=== PATIENT | male | born 1975 | race Hispanic/Latino ===

== ENCOUNTER 2018-05-07 19:24 | Emergency (ER) | payer SELFPAY ==
[2018-05-07] MEDS ORDERED: Ondansetron HCl/PF 4 MG/2 ML Vial ONE (19:56)
[2018-05-07] MEDS ORDERED: Lorazepam 2 MG/ML VIAL ONE (19:56)
[2018-05-07 20:02] LABS: #Eosinphils 0.1 thou/uL (0.0-0.7); #Lymphocytes 1.3 thou/uL (1.20-3.40); #Monocytes 0.5 thou/uL (0.11-0.59); #Neutrophils 5.1 thou/uL (1.40-6.50); %Basophils 0.2 % (0.0-1.0); %Eosinophils 1.2 % (0.0-10.0); %Lymphocytes 18.8 % (21.0-51.0); %Monocytes 7.5 % (0.0-10.0); %Neutrophils 72.3 % (42.0-75.0); Hemoglobin 14.9 g/dL (14.0-18.0); Mean Corpuscular HGB CONC 35.6 g/dL (32.0-36.0); Mean Corpuscular Hemoglobin 30.4 pg (27.0-31.0); Mean Corpuscular Volume 85.4 fL (78.0-98.0); Mean Platelet Volume 6.9 fL (7.4-10.4); Platelet Count 143 thou/uL (130-400); RBC Distribution Width 11.8 % (11.5-14.5); Red Blood Cell (RBC) Count 4.88 mill/uL (4.70-6.10); White Blood Cell (WBC) Count 7.1 thou/uL (4.8-10.8)
[2018-05-07 20:27] LABS: ALT (SGPT) 99 U/L (8-55); AST (SGOT) 104 U/L (5-34); Albumin 4.1 g/dL (3.5-5.0); Alcohol 195 mg/dL (Less than 10); Alkaline Phosphatase 84 U/L (40-150); Anion Gap 16 mmol/L (10-20); BUN (Urea Nitrogen) 8 mg/dL (8.9-20.6); Bilirubin, Total 0.8 mg/dL (0.2-1.2); Calc. Creatinine Clearance 0 mL/min (70-130); Calcium 8.7 mg/dL (7.8-10.44); Carbon Dioxide 24 mmol/L (22-29); Chloride 90 mmol/L (98-107); Estimated GFR-MDRD Greater than 90; Globulin 2.9 g/dL (2.4-3.5); Glucose 112 mg/dL (70-105); Lipase 54 U/L (8-78); Potassium 3.6 mmol/L (3.5-5.1); Sodium 126 mmol/L (136-145)
[2018-05-07 20:28] LABS: CKMB 2.4 ng/mL (0-6.6); Troponin I Less than 0.010 ng/mL (< 0.028)
[2018-05-07 20:30] LABS: Bilirubin Negative (Negative); Blood, Urine Negative (Negative); Clarity CLEAR (Clear); Glucose, Urine (Dipstick) 100 mg/dL (Negative); Leukocyte Negative (Negative); Nitrite Negative (Negative); Protein, Urine (Dipstick) Trace mg/dL (Neg-Trace); Specific Gravity, Urine 1.023 (1.002-1.036); Urobilinogen 0.2 mg/dL (0.2-1.0); pH, Urine 5.5 (5.0-9.0)
--- NOTE | 2018-05-11 11:54 | EKG ---
Test Reason : Blood Pressure : / mmHG Vent. Rate : 122 BPM Atrial Rate : 122 BPM P-R Int : 134 ms QRS Dur : 090 ms QT Int : 308 ms P-R-T Axes : 040 089 035 degrees QTc Int : 438 ms Sinus tachycardia Possible Left atrial enlargement Borderline ECG Confirmed by ENRIQUETA CAMARENA ([id number]), rewrite editor SOCO PIZARRO ([id number]) on 05/11/2018 11:54:11 AM Referred By: Confirmed By:ENRIQUETA CAMARENA
== END 2018-05-07 23:00 | disposition home or self-care (01) ==
LOC: ERS 19:24
DX: R10.13 Epigastric pain (principal); R11.10 Vomiting, unspecified; E05.90 Thyrotoxicosis, unspecified without thyrotoxic crisis or storm; K21.9 Gastro-esophageal reflux disease without esophagitis; I10 Essential (primary) hypertension; G43.909 Migraine, unspecified, not intractable, without status migrainosus; F41.9 Anxiety disorder, unspecified; F32.9 Major depressive disorder, single episode, unspecified; F17.210 Nicotine dependence, cigarettes, uncomplicated; Z79.899 Other long term (current) drug therapy
CPT/HCPCS: 80053; 80307; 81003; 82553; 83690; 84484; 85025; 93005; 96361; 96374; 96375; J2060; J2405

== ENCOUNTER 2018-06-09 14:29 | Inpatient (IN) | payer SELFPAY ==
[2018-06-09] MEDS ORDERED: Ondansetron HCl/PF 4 MG/2 ML Vial ONE ×2 (14:39)
[2018-06-09 14:51] LABS: #Basophils 0.1 thou/uL (0.0-0.2); #Eosinphils 0.1 thou/uL (0.0-0.7); #Lymphocytes 2.4 thou/uL (1.20-3.40); #Monocytes 0.6 thou/uL (0.11-0.59); #Neutrophils 4.3 thou/uL (1.40-6.50); %Basophils 0.9 % (0.0-1.0); %Eosinophils 1.4 % (0.0-10.0); %Lymphocytes 32.1 % (21.0-51.0); %Monocytes 8.2 % (0.0-10.0); %Neutrophils 57.4 % (42.0-75.0); Hemoglobin 16.1 g/dL (14.0-18.0); Mean Corpuscular HGB CONC 33.2 g/dL (32.0-36.0); Mean Corpuscular Hemoglobin 30.7 pg (27.0-31.0); Mean Corpuscular Volume 92.4 fL (78.0-98.0); Mean Platelet Volume 7.2 fL (7.4-10.4); Platelet Count 194 thou/uL (130-400); RBC Distribution Width 14.5 % (11.5-14.5); Red Blood Cell (RBC) Count 5.27 mill/uL (4.70-6.10); White Blood Cell (WBC) Count 7.4 thou/uL (4.8-10.8)
[2018-06-09] MEDS ORDERED: Pantoprazole 40 MG VIAL ONE (14:59)
[2018-06-09 15:03] LABS: ALT (SGPT) 110 U/L (8-55); AST (SGOT) 141 U/L (5-34); Albumin 4.5 g/dL (3.5-5.0); Alkaline Phosphatase 88 U/L (40-150); Bilirubin, Direct 0.4 mg/dL (0.1-0.3); Bilirubin, Total 0.9 mg/dL (0.2-1.2); CK (CPK) 574 U/L (30-200); Protein, Total 7.8 g/dL (6.0-8.3)
[2018-06-09] MEDS ORDERED: Morphine 4 MG/ML VIAL ONE ×2 (15:06→16:20)
[2018-06-09 15:10] LABS: ALT (SGPT) 109 U/L (8-55); AST (SGOT) 142 U/L (5-34); Acetaminophen Less than 6.0 mcg/mL (10.0-30.0); Albumin 4.4 g/dL (3.5-5.0); Alcohol 233 mg/dL (Less than 10); Alkaline Phosphatase 87 U/L (40-150); Anion Gap 21 mmol/L (10-20); BUN (Urea Nitrogen) 5 mg/dL (8.9-20.6); Bilirubin, Total 0.9 mg/dL (0.2-1.2); Calc. Creatinine Clearance 0 mL/min (70-130); Calcium 9.4 mg/dL (7.8-10.44); Carbon Dioxide 20 mmol/L (22-29); Chloride 96 mmol/L (98-107); Estimated GFR-MDRD Greater than 90; Globulin 3.6 g/dL (2.4-3.5); Glucose 125 mg/dL (70-105); Potassium 3.2 mmol/L (3.5-5.1); Salicylate Less than 8.0 mg/dL (15.0-30.0); Sodium 134 mmol/L (136-145)
[2018-06-09 15:14] LABS: CKMB 2.7 ng/mL (0-6.6); Troponin I Less than 0.010 ng/mL (< 0.028)
[2018-06-09 16:31] LABS: Amphetamine Not Detected (NotDetected); Barbiturates Screen Not Detected (NotDetected); Benzodiazepine Screen Not Detected (NotDetected); Cocaine Metabolite Screen Detected (NotDetected); Medtox Control Line Valid? VALID (VALID); Medtox Reader # READER 1; Methadone Not Detected (NotDetected); Methamphetamine Not Detected (NotDetected); Opiate Screen Detected (NotDetected); Oxycodone Screen Not Detected (NotDetected); Phencyclidine (PCP) Not Detected (NotDetected); THC/Cannabinoid Screen Not Detected (NotDetected); Tricyclic Screen Not Detected (NotDetected)
[2018-06-09] MEDS ORDERED: Ondansetron HCl/PF 4 MG/2 ML Vial IVP PRN (17:10)
[2018-06-09] MEDS ORDERED: Morphine 4 MG/ML VIAL SLOW IVP PRN ×2 (17:11→20:36)
[2018-06-09] MEDS ORDERED: Lorazepam 2 MG/ML VIAL SLOW IVP PRN (17:14)
[2018-06-09] MEDS ORDERED: Sodium Chloride 0.9% 1,000 ML IV SCH (17:15)
--- NOTE | 2018-06-09 17:18 | ULT ---
RIGHT UPPER QUADRANT GALLBLADDER ULTRASOUND: HISTORY: Abdominal pain. COMPARISON: Ultrasound from 2015. TECHNIQUE: Real-time kirk-scale and color evaluation of the abdomen was performed. FINDINGS: There is diffuse increased hepatic echotexture. The pancreas is not well seen. The liver measures 1 6.9 cm in length. Gallbladder wall thickness is normal. No pericholecystic fluid. The common bile duct is not dilated. The right kidney measures 13.7 x 6 x 4.9 cm with a septated cyst. IMPRESSION: 1. Diffuse hepatic steatosis. 2. Complex superior renal cyst. This has not increased in size from the 2015 examination. POS: [facility]
[2018-06-09 17:31] VITALS: BMI 27.6
[2018-06-09] MEDS: Sodium Chloride 0.9% 1,000 ML IV SCH (18:07)
[2018-06-09] MEDS: Famotidine/PF 20 mg/2ml Vial SLOW IVP SCH (20:47)
[2018-06-10] MEDS: Sodium Chloride 0.9% 1,000 ML IV SCH ×3 (00:40→12:57)
[2018-06-10] MEDS ORDERED: Diazepam 5 MG TAB PO SCH (04:00)
--- NOTE | 2018-06-10 04:45 | HP ---
CHIEF COMPLAINT: Abdominal pain. HISTORY OF PRESENT ILLNESS: This patient is a 42-year-old male with history of alcohol abuse and history of prior episodes of pancreatitis. The patient had quit drinking for about a year, but started again about a month ago. Around that time, the patient presented to the emergency department with some abdominal pain; however, his workup was negative. The patient reports that for the last several days he has had some nausea, vomiting, diarrhea, and epigastric abdominal pain. He says that yesterday he drank about 15 beers and his pain persisted, so he presented to the emergency department today. He denies any associated fevers or chills. The patient describes the pain is epigastric, constant and severe. REVIEW OF SYSTEMS: Notable for chills and sweats only today. He has been losing some weight and he has felt somewhat short of breath with this. PAST MEDICAL HISTORY: Notable for pancreatitis, alcohol abuse, hypertension, depression, GERD and migraines. PAST SURGICAL HISTORY: Knee and wrist surgeries. FAMILY HISTORY: Unremarkable. SOCIAL HISTORY: The patient quit smoking about a year ago. Says he quit drinking about a year ago and then had two relapses, one a month ago and again in yesterday. He denies drugs and says he quit 2 years ago, but he did indicate to the emergency department that he admitted to using cocaine and his drug screen was positive. The patient is . His sister would be his surrogate decision maker and he is a FULL CODE. ALLERGIES: None. MEDICATIONS: The patient reports he does take blood pressure medications, but he does not know what his medications are. PHYSICAL EXAMINATION: VITAL SIGNS: Temperature 97.6, pulse 95, respirations 18, blood pressure 108/73 , O2 sat 95% on room air. GENERAL APPEARANCE: Age appropriate male in no distress. He is slightly ill appearing. HEENT: PERRL. No OP lesions. NECK: Supple and symmetric. CARDIOVASCULAR: Regular rate and rhythm without murmurs, gallops or rubs. LUNGS: Clear bilaterally. ABDOMEN: Has exquisite tenderness to palpation in the epigastrium with guarding , no rebound. EXTREMITIES: Warm and dry. LABORATORY DATA: White count 7.4, hemoglobin 16.1, platelets 194. Sodium 134, potassium 3.2, chloride 96, CO2 of 20, BUN 5, creatinine 0.8, glucose 125, AST 141, ALT 110. CK 574, lipase 13,784. Urine drug screen positive for opiates and cocaine. Alcohol level is 233. Ultrasound of the abdomen is pending. IMPRESSION AND PLAN: 1. Acute pancreatitis, which is recurrent and secondary to alcohol abuse. The patient went on bowel rest, IV fluids, and p.r.n. morphine. 2. Acute alcohol intoxication. The patient has received some multivitamin repletion. We will give Ativan p.r.n. The patient indicates that he had not drank in the previous month and therefore would be lower likelihood for withdrawal; however, given the fact that he has apparently not been honest regarding his drug use, we will take precautions. 3. Drug abuse. The patient has cocaine in his drug screen and admitted to the emergency department that he had used it. 4. Elevated liver function tests likely secondary to the alcohol abuse. 5. Hypokalemia, mild, so we will monitor. 6. The patient reports a history of hypertension, does not know his medications. We will attempt to work on this. TETO
[2018-06-10 05:48] LABS: ALT (SGPT) 79 U/L (8-55); AST (SGOT) 96 U/L (5-34); Albumin 3.6 g/dL (3.5-5.0); Alkaline Phosphatase 61 U/L (40-150); Anion Gap 15 mmol/L (10-20); BUN (Urea Nitrogen) Less than 4 mg/dL (8.9-20.6); Bilirubin, Total 1.1 mg/dL (0.2-1.2); Calc. Creatinine Clearance 176 mL/min (70-130); Carbon Dioxide 24 mmol/L (22-29); Chloride 95 mmol/L (98-107); Estimated GFR-MDRD Greater than 90; Globulin 2.9 g/dL (2.4-3.5); Glucose 133 mg/dL (70-105); Lipase 843 U/L (8-78); Potassium 3.9 mmol/L (3.5-5.1); Protein, Total 6.5 g/dL (6.0-8.3); Sodium 130 mmol/L (136-145)
[2018-06-10] MEDS ORDERED: cloNIDine 0.1 MG TAB PO SCH (06:45)
[2018-06-10 07:51] LABS: Magnesium 1.5 mg/dL (1.6-2.6); Phosphorus 3.2 mg/dL (2.3-4.7)
[2018-06-10] MEDS: Famotidine/PF 20 mg/2ml Vial SLOW IVP SCH ×2 (08:09→19:33)
[2018-06-10] MEDS ORDERED: Magnesium Sulfate 2 GM in Sodium Chloride 0.9% 100 ML IVPB SCH (08:30)
[2018-06-10] MEDS ORDERED: Multivitamins, Adult 10 ML, Thiamine HCl 100 MG, Folic Acid 1 MG in Dextrose 5 %-0.45 %... IV SCH (09:00)
[2018-06-10] MEDS ORDERED: Enoxaparin Sodium 40 MG/0.4 ML SYRINGE SC SCH (09:00)
--- NOTE | 2018-06-10 11:43 | CT ---
CT ABDOMEN WITH IV CONTRAST: Date: 06/10/18 HISTORY: Pancreatitis. Patient has had abdominal pain for 4 days. History of prior pancreatitis. COMPARISON: 01/30/15. FINDINGS: Again noted is diffuse fatty infiltration of the liver. There is prominent peripancreatic inflammatory stranding and fluid seen, which surrounds the majority of the pancreas with fluid extending into the paracolic gutters bilaterally, greater on the left, phelps ggesting pancreatitis. There is a small portion of the region of the neck and proximal body of the pa ncreas which demonstrates diminished attenuation which could be attributable to necrotizing pancreati tis involving the neck and proximal body of the pancreas. In addition, there is a 1.8 cm hypodense cy stic appearing structure seen within the region of the pancreatic head/uncinate process of the pancre as. This was not seen on study of 01/30/15. Given history of prior pancreatitis, this could potential ly represent a pseudocyst formation, but a cystic neoplastic process, whether benign or malignant, co uld not be entirely excluded, and follow-up imaging after treatment of pancreatitis is recommended. There is no peripancreatic fluid collection to suggest additional pseudocyst formation or abscess col lection. There is bibasilar atelectasis noted. Superior pole right renal hypodense lesion is again seen, likely related to cyst given stability sinc e prior exam. The spleen, bilateral adrenal glands, left kidney, and abdominal aorta demonstrate a normal CT appear ance. There is mild thickening involving the second proximal portion and third portions of duodenum, which is likely reactive secondary to adjacent pancreatitis. The gallbladder is distended, measuring 10.5 cm in length. There is colonic diverticulosis seen in the region of the splenic flexure involving the proximal desc ending colon. No other interval change. IMPRESSION: 1. Pancreatitis with an area of diminished enhancement involving the neck and proximal body of the p ancreas, which is worrisome for necrotizing pancreatitis. 2. Hypodense lesion within the junction of the head and uncinate process of the pancreas. This could be related to pseudocyst formation given history of prior pancreatitis, but cystic neoplastic proces s, whether benign or malignant, is also a differential consideration. Follow-up CT examination of the abdomen is recommended after treatment of patient's acute pancreatitis, and CT abdomen with pancreat ic protocol is recommended for further evaluation. 3. Diffuse fatty infiltration of the liver. 4. Distention of the gallbladder. 5. Mild thickening involving the second portion of the duodenum, likely reactive in origin. 6. Right renal cyst. 7. Colonic diverticulosis. CODE T. POS: [facility]
[2018-06-10] MEDS: Lorazepam 2 MG/ML VIAL SLOW IVP PRN ×2 (12:30→16:45)
[2018-06-10] MEDS: chlordiazePOXIDE HCl 25 MG CAP PO SCH ×2 (16:46→19:31)
[2018-06-10] MEDS ORDERED: Lactated Ringer's 1,000 ML IV SCH (19:00)
--- NOTE | 2018-06-10 23:20 | PDOC.PN ---
- Subjective Encounter Start Date: 06/10/18 Encounter Start Time: 15:00 Patient seen and examined for Pancreatitis. Abd pain improving. No fever/N/V. No other complaints. No overnight events - Objective Resuscitation Status: Resuscitation Status FULL:Full Resuscitation MAR Reviewed: Yes Vital Signs & Weight: Vital Signs (12 hours) Temp Pulse Resp BP Pulse Ox 06/10/18 19:39 98.5 F 130 H 18 162/73 H 98 06/10/18 16:00 99.1 F 124 H 22 H 150/94 H 100 06/10/18 11:50 98.9 F 126 H 24 H 143/95 H 100 Weight Admit Weight 204 lb Weight 204 lb I&O: 06/09/18 06/10/18 06/11/18 06:59 06:59 06:59 Intake Total 1200 Output Total 1700 140 Balance -500 -140 Result Diagrams: 06/11/18 03:33 06/11/18 03:33 Radiology Reviewed by me: Yes (CT abd - Nec Pancreatitis) Phys Exam - Physical Examination Constitutional: NAD Respiratory: no wheezing, no rales, no rhonchi, clear to auscultation bilateral Cardiovascular: RRR, no rub no heaves/pulsations Gastrointestinal: soft, no distention, positive bowel sounds Epig tend, No guarding/rigidity Musculoskeletal: no edema, pulses present Neurological: non-focal, normal sensation, moves all 4 limbs Psychiatric: normal affect, A&O x 3 Dx/Plan - Plan DVT proph w/SCDs IMPRESSION/PLAN: 1. Acute Alcoholic Pancreatitis with Abnormal CT abd Cont IVF, NPO Recheck labs in AM 2. Chronic Alcoholism with Alcohol withdrawal Add Librium Cont Lorazepam PRN Counselled. 3. Hypomagnessemia Will replace 4. Hyponatremia Will monitor 5. Abn LFTs prob due to mild Alcoholic hepatitis 6. Elevated CK Recheck in 1-2 days 7. Dehydration Laboratory Tests 06/10/18 06/10/18 04:13 04:13 Magnesium 1.5 L AST 96 H ALT 79 H Lipase 843 H Review of Systems - Review of Systems Respiratory: negative: Cough, Dry, Shortness of Breath, Hemoptysis, SOB with Excertion, Pleuritic Pain, Sputum, Wheezing Cardiovascular: negative: chest pain, palpitations, orthopnea, paroxysmal nocturnal dyspnea, edema, light headedness, other - Medications/Allergies Allergies/Adverse Reactions: Allergies Allergy/AdvReac Type Severity Reaction Status Date / Time No Known Allergies Allergy Verified 01/30/15 19:59 Medications: Current Medications Chlordiazepoxide HCl (Librium) 25 mg PO TID [facility] Last Admin: 06/10/18 19:31 Dose: 25 mg Enoxaparin Sodium (Lovenox) 40 mg SC 0900 [facility] Last Admin: 06/10/18 08:08 Dose: 40 mg Famotidine (Pepcid) 20 mg SLOW IVP Q12HR [facility] Last Admin: 06/10/18 19:33 Dose: 20 mg Sodium Chloride (Normal Saline 0.9%) 1,000 mls @ 100 mls/hr IV .Q10H [facility] Last Admin: 06/10/18 12:57 Dose: Not Given Multivitamins 10 ml/ Folic Acid 1 mg/ Thiamine HCl 100 mg / Dextrose/Sodium Chloride 1,011.2 mls @ 500 mls/hr IV Q24HR@0800 [facility] Stop: 06/12/18 10:02 Lorazepam (Ativan) 1 mg SLOW IVP Q4H PRN PRN Reason: ASE >=9 Last Admin: 06/10/18 16:45 Dose: 1 mg Morphine Sulfate (Morphine) 2 mg SLOW IVP Q2H PRN PRN Reason: Moderate to Severe Pain (4-10) Last Admin: 06/10/18 19:36 Dose: 2 mg Ondansetron HCl (Zofran) 4 mg IVP Q6H PRN PRN Reason: Nausea/Vomiting
--- NOTE | 2018-06-10 23:47 | CON ---
DATE OF CONSULTATION: 06/10/2018 CHIEF COMPLAINT: Abdominal pain. HISTORY OF PRESENT ILLNESS: Mr. Acevedo is a 42-year-old man who developed epigastric severe achin g pain a few days ago that radiates through to his back. He has a relapse of acute alcohol use prece ding that. He blames this on his recent divorce. He had quit drinking around a year ago and has had a couple of relapses since then. He did have nausea and vomiting prior to coming to the hospital. No diarrhea, constipation, or blood in the stool. His abdominal pain is markedly better. He has no ongoing nausea and he just feels a little bit bloated now. When he sits up, using all his abdominal muscles, he has some abdominal discomfort then, but no ongoing pain. IMAGING: Had a CT scan of the abdomen today with contrast that showed a question of an area of dimin ished enhancement involving the neck and proximal body of the pancreas, which raised the possibility of necrotizing pancreatitis. There is also a hypodense lesion within the head of the pancreas that c ould be a cyst-type lesion. Secondary thickening of the duodenum was noted. Fatty liver was also no malaika. PAST MEDICAL HISTORY: Alcohol abuse, hypertension, depression. PAST SURGICAL HISTORY: Knee surgery, wrist surgery. FAMILY HISTORY: Negative for pancreatic disease or GI malignancy. HABITS: He had quit alcohol, but states he had relapse more recently. He has a drug screen that was positive for cocaine. He quit smoking a year ago. ALLERGIES: No known drug allergies. MEDICATIONS: Prior to admission, escitalopram and lisinopril. REVIEW OF SYSTEMS: Negative x10 systems reviewed except as stated in the history of present illness. PHYSICAL EXAMINATION: VITAL SIGNS: Temperature 99.1, pulse 124, blood pressure 150/94. GENERAL: He is in no acute distress. He is alert and oriented x3. HEENT: His eyes have no scleral icterus. Oropharynx is clear without lesions. NECK: No cervical or supraclavicular lymphadenopathy. LUNGS: Clear to auscultation bilaterally. HEART: Tachycardic S1, S2. ABDOMEN: Soft with mild tenderness in the epigastric region without guarding. Bowel sounds are pres ent. EXTREMITIES: No lower extremity edema. NEUROLOGIC: Cranial nerves are grossly intact. LABORATORY DATA: Creatinine 0.71. Sodium 130, bilirubin 1.1, AST 96, ALT 79, alkaline phosphatase 6 1, albumin 3.6, lipase yesterday was 13,784, today is 873. Viral hepatitis screen was negative in . White blood cell count 7.4, hemoglobin 16.1, platelets 194,000. IMPRESSION: 1. Acute pancreatitis. Clinically, he has mild pancreatitis given lack of any secondary organ failu re and almost resolution of his pain. If decreased attenuation of the pancreas noted on CT is real, then if he does have pancreatic necrosis and this will be severe pancreatitis. He also had a small c ystic lesion which likely represents a pseudocyst. Clinically, seems improved; however, he is tachyc ardic. 2. Alcoholic hepatitis with elevated transaminases. 3. Polysubstance abuse. 4. Tachycardia. He was hemoconcentrated on presentation with a baseline hemoglobin back in April o f 14.9 and hemoglobin 16.1 yesterday. I am not sure exactly how much fluid he has gotten since then. Given the ongoing tachycardia, I would give him a bolus now; however, the tachycardia could be seco ndary to alcohol withdrawal. He has Librium and lorazepam ordered. RECOMMENDATIONS: 1. If his abdominal pain continues to improve, then he should be able to start a clear liquid diet a nd then advance to a low-fat diet as he tolerates it tomorrow. 2. Alcohol cessation. 3. Alcohol withdrawal precautions. 4. Thiamine, folate, multiple vitamin. He did receive this morning.
[2018-06-11] MEDS ORDERED: Diazepam 5 MG TAB PO PRN (04:00)
[2018-06-11 05:19] LABS: ALT (SGPT) 48 U/L (8-55); AST (SGOT) 80 U/L (5-34); Albumin 3.1 g/dL (3.5-5.0); Alkaline Phosphatase 49 U/L (40-150); Anion Gap 13 mmol/L (10-20); BUN (Urea Nitrogen) 5 mg/dL (8.9-20.6); Bilirubin, Total 1.8 mg/dL (0.2-1.2); Calc. Creatinine Clearance 219 mL/min (70-130); Calcium 8.2 mg/dL (7.8-10.44); Carbon Dioxide 22 mmol/L (22-29); Chloride 94 mmol/L (98-107); Estimated GFR-MDRD Greater than 90; Globulin 2.6 g/dL (2.4-3.5); Glucose 110 mg/dL (70-105); Lipase 431 U/L (8-78); Magnesium 1.7 mg/dL (1.6-2.6); Potassium 3.4 mmol/L (3.5-5.1); Protein, Total 5.7 g/dL (6.0-8.3); Sodium 126 mmol/L (136-145)
[2018-06-11 06:08] LABS: Band 29 % (5-11); Eosinophils 1 % (0-10); Hemoglobin 13.9 g/dL (14.0-18.0); Hypersemented Neutrophil SLIGHT; Lymphocytes 5 % (21-51); MDiff Complete? YES; Mean Corpuscular HGB CONC 33.9 g/dL (32.0-36.0); Mean Corpuscular Hemoglobin 31.4 pg (27.0-31.0); Mean Corpuscular Volume 92.6 fL (78.0-98.0); Mean Platelet Volume 8.1 fL (7.4-10.4); Monocytes 8 % (0-10); Neutrophil 57 % (42-75); PLT Morphology Comment Appears Decreased; Platelet Count 115 thou/uL (130-400); RBC Distribution Width 14.4 % (11.5-14.5); Red Blood Cell (RBC) Count 4.44 mill/uL (4.70-6.10); White Blood Cell (WBC) Count 10.6 thou/uL (4.8-10.8)
[2018-06-11] MEDS ORDERED: Multivit, Adult Inj 10 ML VIAL IV SCH (07:45)
[2018-06-11] MEDS ORDERED: Multivitamins, Adult 10 ML, Folic Acid 1 MG, Thiamine HCl 100 MG in Dextrose 5 %-0.45 %... IV SCH (08:00)
[2018-06-11] MEDS: chlordiazePOXIDE HCl 25 MG CAP PO SCH ×3 (08:22→20:16)
[2018-06-11] MEDS: Famotidine/PF 20 mg/2ml Vial SLOW IVP SCH ×2 (08:22→20:16)
[2018-06-11] MEDS ORDERED: Lorazepam 2 MG/ML VIAL SLOW IVP SCH ×4 (08:30→23:00)
[2018-06-11] MEDS: Multivitamins, Adult 10 ML in Dextrose 5 % And 0.9 % NaCl 1,000 ML IV SCH (08:33)
[2018-06-11] MEDS: Dextrose 5 % And 0.9 % NaCl 1,000 ML IV SCH ×3 (08:34→22:27)
[2018-06-11] MEDS ORDERED: cloNIDine 0.1 MG TAB PO SCH (09:15)
[2018-06-11] MEDS: cloNIDine 0.1 MG TAB PO SCH ×3 (09:46→20:16)
[2018-06-11] MEDS ORDERED: Lorazepam 2 MG/ML VIAL SLOW IVP PRN ×3 (12:09→22:33)
[2018-06-11] MEDS: Acetaminophen 325 MG TAB PO PRN (13:10)
--- NOTE | 2018-06-11 15:25 | PRG ---
DATE OF SERVICE: 06/11/2018 SUBJECTIVE: Mr. Acevedo has no abdominal pain. He is hungry. No tremors or confusion. PHYSICAL EXAMINATION: VITAL SIGNS: Temperature 99.7, pulse 127, blood pressure 120/86. GENERAL: He is in no acute distress, alert and oriented x3. LUNGS: Clear to auscultation bilaterally. HEART: Regular rate and rhythm. ABDOMEN: Soft, nontender, nondistended. Bowel sounds are present. EXTREMITIES: No lower extremity edema. IMPRESSION: 1. Clinically, mild acute alcoholic pancreatitis; however, CT scan suggests the possibility of necro tizing pancreatitis. Given that he is pain free, hungry, alert and oriented, I will advance his diet today. We will start with clear liquids and then advance to a low fat diet as he tolerates. 2. Tachycardia, likely secondary to alcohol withdrawal. He is receiving chlordiazepoxide, lorazepam and clonidine. He is on multiple vitamins with thiamine and folate. RECOMMENDATIONS: 1. Advancing diet. 2. Alcohol withdrawal precautions.
--- NOTE | 2018-06-11 23:25 | PDOC.PN ---
- Subjective Encounter Start Date: 06/11/18 Encounter Start Time: 14:30 Patient seen and examined for Acute Pancreatitis. No new complaints. No overnight events - Objective Resuscitation Status: Resuscitation Status FULL:Full Resuscitation MAR Reviewed: Yes Vital Signs & Weight: Vital Signs (12 hours) Temp Pulse Resp BP BP BP BP 06/11/18 20:16 117/77 06/11/18 20:00 98.1 F 128 H 18 117/77 117/77 06/11/18 16:00 98.4 F 119 H 18 127/82 06/11/18 15:56 120/86 06/11/18 14:50 97.9 F 118 H 16 120/86 120/86 06/11/18 11:33 99.7 F H 127 H 18 127/81 Pulse Ox 06/11/18 20:16 06/11/18 20:00 99 06/11/18 16:00 90 L 06/11/18 15:56 06/11/18 14:50 97 06/11/18 11:33 99 Weight Admit Weight 204 lb Weight 204 lb I&O: 06/10/18 06/11/18 06/12/18 06:59 06:59 06:59 Intake Total 1200 Output Total 1700 140 Balance -500 -140 Result Diagrams: 06/11/18 03:33 06/11/18 03:33 Phys Exam - Physical Examination Constitutional: NAD Respiratory: no wheezing, no rhonchi Cardiovascular: RRR, no rub Gastrointestinal: soft, positive bowel sounds Mild epig tenderness Musculoskeletal: no edema Neurological: non-focal, moves all 4 limbs Psychiatric: A&O x 3 Dx/Plan - Plan DVT proph w/SCDs IMPRESSION/PLAN: 1. Acute Alcoholic Pancreatitis Cont IVF, Clear liqd diet Recheck labs in AM GI input appreciated 2. Chronic Alcoholism with Alcohol withdrawal Add Librium Cont Lorazepam PRN - increased dose, Add Clonidine 3. Hypomagnessemia / Hypokalemia 4. Hyponatremia Will monitor 5. Abn LFTs prob due to mild Alcoholic hepatitis 6. Elevated CK Recheck in AM 7. Dehydration / Thrombocytopenia Review of Systems - Review of Systems Respiratory: negative: Cough, Dry, Shortness of Breath, Hemoptysis, SOB with Excertion, Pleuritic Pain, Sputum, Wheezing Cardiovascular: negative: chest pain, palpitations, orthopnea, paroxysmal nocturnal dyspnea, edema, light headedness, other - Medications/Allergies Allergies/Adverse Reactions: Allergies Allergy/AdvReac Type Severity Reaction Status Date / Time No Known Allergies Allergy Verified 01/30/15 19:59 Medications: Current Medications Acetaminophen (Tylenol) 650 mg PO Q4H PRN PRN Reason: Headache/Fever or Mild Pain Last Admin: 06/11/18 13:10 Dose: 650 mg Chlordiazepoxide HCl (Librium) 25 mg PO TID [facility] Last Admin: 06/11/18 20:16 Dose: 25 mg Clonidine (Catapres) 0.1 mg PO TID [facility] Last Admin: 06/11/18 20:16 Dose: 0.1 mg Famotidine (Pepcid) 20 mg SLOW IVP Q12HR [facility] Last Admin: 06/11/18 20:16 Dose: 20 mg Multivitamins 10 ml/ Dextrose/ (Sodium Chloride) 1,010 mls @ 150 mls/hr IV DAILY [facility] Last Admin: 06/11/18 08:33 Dose: 1,010 mls Dextrose/Sodium Chloride (D5 0.9% Ns) 1,000 mls @ 150 mls/hr IV .Q6H40M [facility] Last Admin: 06/11/18 22:27 Dose: Not Given Lorazepam (Ativan) 2 mg SLOW IVP Q2H [facility] Last Admin: 06/11/18 23:00 Dose: 2 mg Morphine Sulfate (Morphine) 2 mg SLOW IVP Q2H PRN PRN Reason: Moderate to Severe Pain (4-10) Last Admin: 06/10/18 19:36 Dose: 2 mg Ondansetron HCl (Zofran) 4 mg IVP Q6H PRN PRN Reason: Nausea/Vomiting Sodium Chloride (Flush - Normal Saline) 10 ml IVF Q12HR [facility] Last Admin: 06/11/18 20:16 Dose: Not Given Sodium Chloride (Flush - Normal Saline) 10 ml IVF PRN PRN PRN Reason: Saline Flush
[2018-06-12] MEDS: Lorazepam 2 MG/ML VIAL SLOW IVP SCH ×4 (00:18→08:15)
[2018-06-12] MEDS: Dextrose 5 % And 0.9 % NaCl 1,000 ML IV SCH (00:21)
[2018-06-12] MEDS ORDERED: Lorazepam 2 MG/ML VIAL SLOW IVP SCH ×2 (04:00→10:00)
[2018-06-12 04:58] LABS: ALT (SGPT) 39 U/L (8-55); AST (SGOT) 67 U/L (5-34); Albumin 2.9 g/dL (3.5-5.0); Alkaline Phosphatase 48 U/L (40-150); Anion Gap 11 mmol/L (10-20); BUN (Urea Nitrogen) 5 mg/dL (8.9-20.6); Bilirubin, Total 1.9 mg/dL (0.2-1.2); CK (CPK) 321 U/L (30-200); Calc. Creatinine Clearance 195 mL/min (70-130); Calcium 8.3 mg/dL (7.8-10.44); Carbon Dioxide 23 mmol/L (22-29); Chloride 100 mmol/L (98-107); Estimated GFR-MDRD Greater than 90; Globulin 2.8 g/dL (2.4-3.5); Glucose 131 mg/dL (70-105); Lipase 173 U/L (8-78); Potassium 3.2 mmol/L (3.5-5.1); Protein, Total 5.7 g/dL (6.0-8.3); Sodium 131 mmol/L (136-145)
[2018-06-12 05:29] LABS: Band 17 % (5-11); Hemoglobin 12.1 g/dL (14.0-18.0); Lymphocytes 14 % (21-51); MDiff Complete? YES; Mean Corpuscular HGB CONC 33.3 g/dL (32.0-36.0); Mean Corpuscular Volume 92.8 fL (78.0-98.0); Mean Platelet Volume 8.1 fL (7.4-10.4); Monocytes 19 % (0-10); Neutrophil 49 % (42-75); Platelet Count 145 thou/uL (130-400); RBC Distribution Width 14.2 % (11.5-14.5); Reactive Lymphocytes 1 % (0-10); Red Blood Cell (RBC) Count 3.89 mill/uL (4.70-6.10); White Blood Cell (WBC) Count 10.5 thou/uL (4.8-10.8)
[2018-06-12] MEDS: chlordiazePOXIDE HCl 25 MG CAP PO SCH (08:17)
[2018-06-12] MEDS: cloNIDine 0.1 MG TAB PO SCH ×3 (08:18→20:54)
[2018-06-12] MEDS: Famotidine/PF 20 mg/2ml Vial SLOW IVP SCH ×2 (08:18→20:54)
[2018-06-12] MEDS ORDERED: Potassium Chloride 20 MEQ TAB PO SCH ×2 (09:00→17:00)
[2018-06-12 09:50] LABS: Magnesium 1.9 mg/dL (1.6-2.6)
[2018-06-12] MEDS ORDERED: Multivit, Adult Inj 10 ML VIAL IV SCH (10:00)
[2018-06-12] MEDS ORDERED: Lorazepam 2 MG/ML VIAL SLOW IVP PRN (10:08)
[2018-06-12] MEDS: Multivitamins, Adult 10 ML in Dextrose 5 % And 0.9 % NaCl 1,000 ML IV SCH (10:10)
[2018-06-12 10:20] LABS: Phosphorus Less than 1.0 mg/dL (2.3-4.7)
[2018-06-12] MEDS ORDERED: Potassium Phosphate 15 MMOL in Sodium Chloride 0.9% 250 ML 250 ML IVPB SCH (10:30)
[2018-06-12] MEDS: D5 1/2 NS w/20 mEq KCL 1,000 ML IV SCH ×2 (12:49→19:00)
[2018-06-12] MEDS: Multivitamins, Adult 10 ML, Potassium Chloride 20 MEQ in Dextrose 5 %-0.45 % NaCl 1,000 ML IV SCH (13:24)
--- NOTE | 2018-06-12 16:55 | PRG ---
DATE OF SERVICE: 06/12/2018 SUBJECTIVE: Mr. Aceevdo had worsening alcohol withdrawal symptoms last night. He started having w orsening mental status and increased tremulousness and diaphoresis. He was transferred to the CCU an d gave an additional treatment with Precedex. He is also on Librium, clonidine, lorazepam. Currentl y, he denies any abdominal pain; however, he is only oriented to his name and is not as communicative . OBJECTIVE: VITAL SIGNS: Pulse is in the 105-112 range, blood pressure 124/80. He is afebrile. GENERAL: He is diaphoretic, oriented to his name only. LUNGS: Clear to auscultation bilaterally. HEART: Tachycardic S1, S2. ABDOMEN: Soft, nontender, nondistended. Bowel sounds are present. EXTREMITIES: No lower extremity edema. IMPRESSION: 1. Delirium tremens. 2. Acute alcoholic pancreatitis. Overall, clinically this seems to be mild, however, there is a question of pancreatic necrosis by CT with contrast. He is currently n.p.o. due to aspiration risk from the altered mental status, however , when his mental status is adequately improved, then he could restart a diet at that point. He can start with clear liquid. PLAN: Advance to a low-fat diet there. RECOMMENDATIONS: 1. Management of the DTs per the primary service. 2. If mental status is adequate, then we can advance his diet at that point.
--- NOTE | 2018-06-12 19:04 | PDOC.PN ---
- Subjective Encounter Start Date: 06/12/18 Encounter Start Time: 09:00 -: non-verbal Patient seen and examined for Pancreatitis/DTs. Received Ativan now. Confused. Overnight events noted - Objective Resuscitation Status: Resuscitation Status FULL:Full Resuscitation MAR Reviewed: Yes Vital Signs & Weight: Vital Signs (12 hours) Temp Pulse Resp BP BP Pulse Ox 06/12/18 16:06 130/91 H 06/12/18 16:00 97.8 F 146/89 H 06/12/18 12:20 141/93 H 06/12/18 11:48 97 06/12/18 11:40 97.7 F 06/12/18 08:18 137/101 H 06/12/18 08:15 137/101 H 06/12/18 07:50 95 06/12/18 07:30 99.1 F 127 H 22 H 137/101 H 95 Weight Admit Weight 204 lb Weight 204 lb Most Recent Monitor Data Heart Rate from ECG 101 NIBP 146/85 NIBP BP-Mean 105 Respiration from ECG 23 SpO2 97 I&O: 06/11/18 06/12/18 06/13/18 06:59 06:59 06:59 Intake Total 585 623.3 Output Total 140 200 Balance -140 585 423.3 Result Diagrams: 06/12/18 04:12 06/12/18 04:12 EKG Reviewed by me: Yes (Tele ST) Phys Exam - Physical Examination Constitutional: NAD (confused/tremulous) Respiratory: no wheezing, no rhonchi Cardiovascular: RRR, no rub Gastrointestinal: soft, non-tender, positive bowel sounds Musculoskeletal: no edema Dx/Plan - Plan DVT proph w/heparin, DVT proph w/SCDs IMPRESSION: 1. Acute Alcoholic Pancreatitis 2. Delirium tremens 3. Hypomagnessemia / Hypokalemia/ Hypophosphatemia 4. Hyponatremia 5. Abn LFTs prob due to mild Alcoholic hepatitis 6. Elevated CK 7. Dehydration / Thrombocytopenia/ Chronic Alcoholism PLAN: Transfer to CCU Add Precedex Hold Librium Ativan PRN Critical care consult AM labs Replace electrolytes Laboratory Tests 06/12/18 04:12 Phosphorus Less than 1.0 L Magnesium 1.9 Review of Systems - Review of Systems Other: Cannot obtain due to current mentation. - Medications/Allergies Allergies/Adverse Reactions: Allergies Allergy/AdvReac Type Severity Reaction Status Date / Time No Known Allergies Allergy Verified 01/30/15 19:59 Medications: Current Medications Acetaminophen (Tylenol) 650 mg PO Q4H PRN PRN Reason: Headache/Fever or Mild Pain Last Admin: 06/11/18 13:10 Dose: 650 mg Clonidine (Catapres) 0.1 mg PO TID [facility] Last Admin: 06/12/18 16:06 Dose: Not Given Escitalopram Oxalate (Lexapro) 20 mg PO DAILY [facility] [place] Famotidine (Pepcid) 20 mg SLOW IVP Q12HR [facility] [place] Last Admin: 06/12/18 08:18 Dose: 20 mg Potassium Chloride/Dextrose/Sod Cl (D5 1/2 Ns W/20 Meq Kcl) 1,000 mls @ 125 mls /hr IV .Q8H [facility] [place] Last Admin: 06/12/18 12:49 Dose: 1,000 mls Multivitamins 10 ml/ Potassium Chloride 20 meq/ Dextrose/Sodium Chloride 1,020 mls @ 126.238 mls/hr IV Q24HR [facility] [place] Last Admin: 06/12/18 13:24 Dose: Not Given Dexmedetomidine HCl 200 mcg/ (Sodium Chloride) 50 mls @ 0 mls/hr IVPB INF [facility] [place]; Protocol Last Admin: 06/12/18 12:22 Dose: 50 mls Lorazepam (Ativan) 1 mg SLOW IVP Q2H PRN PRN Reason: Anxiety/Agitation Morphine Sulfate (Morphine) 2 mg SLOW IVP Q2H PRN PRN Reason: Moderate to Severe Pain (4-10) Last Admin: 06/10/18 19:36 Dose: 2 mg Ondansetron HCl (Zofran) 4 mg IVP Q6H PRN PRN Reason: Nausea/Vomiting Potassium Chloride (K-Dur) 20 meq PO BID-[facility] Sodium Chloride (Flush - Normal Saline) 10 ml IVF Q12HR [facility] [place] Last Admin: 06/12/18 08:19 Dose: Not Given Sodium Chloride (Flush - Normal Saline) 10 ml IVF PRN PRN PRN Reason: Saline Flush
--- NOTE | 2018-06-12 19:04 | CON ---
DATE OF CONSULTATION: 06/12/2018 REASON FOR CONSULTATION: Alcohol withdrawal symptoms. HISTORY OF PRESENT ILLNESS: A 42-year-old male, who is currently hospitalized for treatment of pancr eatitis due to excessive drinking. He is also withdrawing from multiple substances including alcohol and cocaine. The patient was not doing well on the Ativan and Librium, and he has been transferred to the CCU for a Precedex drip. PAST MEDICAL HISTORY: 1. Pancreatitis. 2. Alcohol abuse. 3. Hypertension. 4. Depression. PAST SURGICAL HISTORY: Knee surgery, wrist surgery. SOCIAL HISTORY: Quit smoking about a year ago. Drinks alcohol heavily, was noted to have cocaine in his drug screen. He is . ALLERGIES: None. MEDICATIONS: antihypertensive at home. REVIEW OF SYSTEMS: Otherwise, negative. PHYSICAL EXAMINATION: VITAL SIGNS: Temperature 99.1, pulse 112, blood pressure 155/86, O2 sat 98%. GENERAL: The patient is currently sleeping heavily. HEENT: Pupils react. Sclerae icteric. Oropharynx clear. NECK: No JVD. LUNGS: Clear. CARDIOVASCULAR: S1, S2 regular. ABDOMEN: Soft. EXTREMITIES: Tremulous. LABORATORY DATA: White blood cell count 10.5, hematocrit 36.1, platelet count 145. Sodium 131, pota ssium 3.2, chloride 100, CO2 of 23, BUN 5, creatinine 7.6, glucose 131, magnesium 1.9, phosphorus 1.0 , lipase 173. ASSESSMENT: Withdrawal uncontrolled benzodiazepines. PLAN: 1. Precedex drip, IV fluid supplementation with thiamine. 2. Replace electrolytes as needed. 3. Recommend monitoring electrolytes closely.
[2018-06-12] MEDS: Heparin 5,000 UNITS/ML VIAL SC SCH (20:54)
[2018-06-13] MEDS: Multivitamins, Adult 10 ML, Potassium Chloride 20 MEQ in Dextrose 5 %-0.45 % NaCl 1,000 ML IV SCH (00:39)
[2018-06-13 05:31] LABS: Anion Gap 12 mmol/L (10-20); BUN (Urea Nitrogen) 6 mg/dL (8.9-20.6); Calc. Creatinine Clearance 186 mL/min (70-130); Calcium 8.3 mg/dL (7.8-10.44); Carbon Dioxide 22 mmol/L (22-29); Chloride 99 mmol/L (98-107); Estimated GFR-MDRD Greater than 90; Glucose 129 mg/dL (70-105); Magnesium 1.9 mg/dL (1.6-2.6); Phosphorus 1.7 mg/dL (2.3-4.7); Potassium 3.1 mmol/L (3.5-5.1); Sodium 130 mmol/L (136-145)
[2018-06-13 05:45] LABS: Band 10 % (5-11); Hemoglobin 12.3 g/dL (14.0-18.0); Hypochromia SLIGHT = 6-15 cells (100X) (0-5/hpf); Lymphocytes 7 % (21-51); MDiff Complete? YES; Mean Corpuscular HGB CONC 33.9 g/dL (32.0-36.0); Mean Corpuscular Hemoglobin 31.3 pg (27.0-31.0); Mean Corpuscular Volume 92.3 fL (78.0-98.0); Mean Platelet Volume 7.2 fL (7.4-10.4); Monocytes 15 % (0-10); Neutrophil 68 % (42-75); PLT Morphology Comment Appears Adequate; Platelet Count 192 thou/uL (130-400); Polychromasia SLIGHT = 2-3 cells (100X) (0-2/hpf); RBC Distribution Width 13.9 % (11.5-14.5); Red Blood Cell (RBC) Count 3.93 mill/uL (4.70-6.10); White Blood Cell (WBC) Count 9.3 thou/uL (4.8-10.8)
[2018-06-13] MEDS ORDERED: Potassium Phosphate 30 MMOL in Sodium Chloride 0.9% 500 ML IVPB SCH (07:00)
--- NOTE | 2018-06-13 08:10 | PRG ---
DATE OF SERVICE: 06/13/2018 The patient is much more lucid than he was yesterday. He does have a tremor. PHYSICAL EXAMINATION: VITAL SIGNS: His temperature is 98.3, pulse 91, blood pressure 126/76, O2 sat 99%, 24 hour intake 22 40, output 1650. HEENT: Unremarkable. NECK: No JVD. LUNGS: Clear without wheezing. CARDIAC: S1 and S2 regular. ABDOMEN: Soft. EXTREMITIES: No edema. LABORATORY DATA: White blood cell count 9.3, hematocrit 36.3, platelet count 192. Sodium 130, potas sium 3.1, chloride 99, CO2 22, BUN 6, creatinine 0.7, glucose 129. Phosphorus 1.7. ASSESSMENT: 1. Alcohol withdrawal. 2. Pancreatitis. 3. Substance abuse issues. PLAN: The patient's potassium and phosphorus have been replaced. We will recheck labs tomorrow. I have instructed the nurse to try to cut his Precedex in half and get him up into a chair.
[2018-06-13] MEDS: D5 1/2 NS w/20 mEq KCL 1,000 ML IV SCH ×3 (09:07→17:15)
[2018-06-13] MEDS: Acetaminophen 325 MG TAB PO PRN ×2 (09:10→20:41)
[2018-06-13] MEDS: Famotidine/PF 20 mg/2ml Vial SLOW IVP SCH ×2 (09:11→20:35)
[2018-06-13] MEDS: Escitalopram Oxalate 20 mg Tablet PO SCH (09:11)
[2018-06-13] MEDS: cloNIDine 0.1 MG TAB PO SCH ×3 (09:11→20:36)
[2018-06-13] MEDS: Heparin 5,000 UNITS/ML VIAL SC SCH ×2 (09:11→20:36)
[2018-06-13] MEDS ORDERED: Fluticasone Propionate Nasal Spray 16 gm Bottle NASAL SCH (15:00)
[2018-06-13] MEDS: Fluticasone Propionate Nasal Spray 16 gm Bottle NASAL SCH (17:16)
--- NOTE | 2018-06-13 18:18 | PRG ---
DATE OF SERVICE: 06/13/2018 SUBJECTIVE: Mr. Acevedo is alert and oriented x3. He has no abdominal pain. He had a small bowel movement today. OBJECTIVE: VITAL SIGNS: Temperature is 100.2, maximum temperature this morning 101.8. Blood pressure is 122/83 , pulse is up to the 120s. LABORATORY DATA: White blood cell count 9.3, hemoglobin 12.3, platelets 192. Creatinine 0.67. IMPRESSION: 1. Delirium tremens, significantly improved. 2. Acute alcoholic pancreatitis, also improved. RECOMMENDATIONS: 1. Advance to a low-fat diet. 2. Regarding the fever this is too early for infected pancreatic necrosis. This is likely secondary to the DTs or he could have some atelectasis. We will follow the trend. He is not requiring antibi otics at this point.
--- NOTE | 2018-06-13 22:12 | PDOC.PN ---
- Subjective Encounter Start Date: 06/13/18 Encounter Start Time: 10:30 Patient seen and examined for Alcohol withdrawal. No new complaints. Mentation better. Less tremulous. On Precedex drip - Objective Resuscitation Status: Resuscitation Status FULL:Full Resuscitation MAR Reviewed: Yes Vital Signs & Weight: Vital Signs (12 hours) Temp BP Pulse Ox 06/13/18 20:36 133/93 H 06/13/18 20:00 99.5 F 133/93 H 06/13/18 19:55 98 06/13/18 16:00 99.1 F 149/93 H 06/13/18 15:19 122/83 06/13/18 12:00 100.2 F H 102/59 L Weight Admit Weight 204 lb Weight 204 lb Most Recent Monitor Data Heart Rate from ECG 91 NIBP 133/93 NIBP BP-Mean 106 Respiration from ECG 24 SpO2 98 I&O: 06/12/18 06/13/18 06/14/18 06:59 06:59 06:59 Intake Total 585 2248.3 1733.9 Output Total 1650 3550 Balance 585 598.3 -1816.1 Result Diagrams: 06/13/18 04:45 06/13/18 04:45 EKG Reviewed by me: Yes (Tele SR) Phys Exam - Physical Examination Constitutional: NAD Respiratory: no wheezing, no rhonchi Cardiovascular: RRR, no rub Gastrointestinal: soft, positive bowel sounds Musculoskeletal: no edema Neurological: moves all 4 limbs Dx/Plan - Plan DVT proph w/SCDs IMPRESSION: 1. Acute Alcoholic Pancreatitis 2. Delirium tremens 3. Hypomagnessemia / Hypokalemia/ Hypophosphatemia 4. Hyponatremia 5. Abn LFTs prob due to mild Alcoholic hepatitis 6. Elevated CK 7. Dehydration / Thrombocytopenia/ Chronic Alcoholism PLAN: Cont Precedex drip Replace electrolyte Ativan PRN Critical care input appreciated AM labs Change Pepcid to PO Advance diet if ok with GI Review of Systems - Review of Systems Respiratory: negative: Cough, Dry, Shortness of Breath, Hemoptysis, SOB with Excertion, Pleuritic Pain, Sputum, Wheezing Cardiovascular: negative: chest pain, palpitations, orthopnea, paroxysmal nocturnal dyspnea, edema, light headedness, other - Medications/Allergies Allergies/Adverse Reactions: Allergies Allergy/AdvReac Type Severity Reaction Status Date / Time No Known Allergies Allergy Verified 01/30/15 19:59 Medications: Current Medications Acetaminophen (Tylenol) 650 mg PO Q4H PRN PRN Reason: Headache/Fever or Mild Pain Last Admin: 06/13/18 20:41 Dose: 650 mg Clonidine (Catapres) 0.1 mg PO TID [facility] Last Admin: 06/13/18 20:36 Dose: 0.1 mg Escitalopram Oxalate (Lexapro) 20 mg PO DAILY [facility] Last Admin: 06/13/18 09:11 Dose: 20 mg Famotidine (Pepcid) 20 mg SLOW IVP Q12HR [facility] Last Admin: 06/13/18 20:35 Dose: 20 mg Fluticasone Propionate (Flonase Nasal [place]) 0 gm NASAL 1800 [facility] Last Admin: 06/13/18 17:16 Dose: 1 spr Folic Acid (Folvite) 1 mg PO DAILY [facility] Heparin Sodium (Porcine) (Heparin) 5,000 units SC BID [facility] Last Admin: 06/13/18 20:36 Dose: 5,000 units Potassium Chloride/Dextrose/Sod Cl (D5 1/2 Ns W/20 Meq Kcl) 1,000 mls @ 125 mls /hr IV .Q8H [facility] Last Admin: 06/13/18 17:15 Dose: 1,000 mls Dexmedetomidine HCl 200 mcg/ (Sodium Chloride) 50 mls @ 0 mls/hr IVPB INF [facility]; Protocol Last Admin: 06/13/18 04:14 Dose: 50 mls Lorazepam (Ativan) 1 mg SLOW IVP Q2H PRN PRN Reason: Anxiety/Agitation Morphine Sulfate (Morphine) 2 mg SLOW IVP Q2H PRN PRN Reason: Moderate to Severe Pain (4-10) Last Admin: 06/10/18 19:36 Dose: 2 mg Multivitamins (Theragran) 1 tab PO DAILY [facility] Ondansetron HCl (Zofran) 4 mg IVP Q6H PRN PRN Reason: Nausea/Vomiting Sodium Chloride (Flush - Normal Saline) 10 ml IVF Q12HR [facility] Last Admin: 06/13/18 20:36 Dose: 10 ml Sodium Chloride (Flush - Normal Saline) 10 ml IVF PRN PRN PRN Reason: Saline Flush Thiamine HCl (Thiamine) 100 mg PO DAILY [facility]
[2018-06-14] MEDS: D5 1/2 NS w/20 mEq KCL 1,000 ML IV SCH ×4 (01:28→20:15)
[2018-06-14 05:13] LABS: Anion Gap 12 mmol/L (10-20); BUN (Urea Nitrogen) 4 mg/dL (8.9-20.6); Calc. Creatinine Clearance 189 mL/min (70-130); Calcium 8.4 mg/dL (7.8-10.44); Carbon Dioxide 23 mmol/L (22-29); Chloride 99 mmol/L (98-107); Estimated GFR-MDRD Greater than 90; Glucose 140 mg/dL (70-105); Phosphorus 2.9 mg/dL (2.3-4.7); Potassium 2.9 mmol/L (3.5-5.1); Sodium 131 mmol/L (136-145)
[2018-06-14] MEDS ORDERED: Potassium Chloride 20 MEQ TAB PO SCH ×2 (05:30→18:00)
--- NOTE | 2018-06-14 07:47 | PRG ---
DATE OF SERVICE: 06/14/2018 Mr. Acevedo is doing well. His hospital course was complicated by fever overnight. He is no longe r having alcohol withdrawal symptoms and he is off of the Precedex drip. PHYSICAL EXAMINATION: VITAL SIGNS: His temperature currently 101.4, it has been as high as 101.8, pulse 90, blood pressure 147/92, O2 sat 99%, 24 hour intake 4115, output 6750. HEENT: Unremarkable. NECK: No JVD. LUNGS: Clear breath sounds. CARDIAC: S1 and S2 regular. ABDOMEN: Tender midepigastric area. EXTREMITIES: No clubbing, cyanosis, or edema. LABORATORY DATA: Sodium 131, potassium 2.9, chloride 99, CO2 of 23, BUN 4, creatinine 0.6, glucose 1 40, white blood cell count 9.3, hematocrit 36.3, platelet count 192. He has 68% neutrophils and 10% bands. ASSESSMENT: 1. Pancreatitis. 2. Alcohol withdrawal. 3. Fever. PLAN: 1. I have recommended culturing the patient. 2. I would empirically start antibiotics given the persistence of the fever. I think the fever is m ost likely secondary to pancreatitis. 3. Can transfer to the medical floor.
[2018-06-14] MEDS: Potassium Chloride 20 MEQ in Premix Bag 1 BAG IVPB SCH ×2 (08:13→15:04)
[2018-06-14] MEDS: Escitalopram Oxalate 20 mg Tablet PO SCH (08:15)
[2018-06-14] MEDS: Famotidine 20 MG TAB PO SCH ×2 (08:15→20:32)
[2018-06-14] MEDS: cloNIDine 0.1 MG TAB PO SCH (08:18)
[2018-06-14] MEDS: Folic Acid 1 MG TAB PO SCH (08:18)
[2018-06-14] MEDS: Multivit, Therapeutic 1 TAB PO SCH (08:19)
[2018-06-14] MEDS: Heparin 5,000 UNITS/ML VIAL SC SCH ×2 (08:19→20:32)
[2018-06-14] MEDS: Acetaminophen 325 MG TAB PO PRN ×2 (08:20→20:36)
[2018-06-14] MEDS: Meropenem 2 GM, Admixture Fee 1 EACH in Sodium Chloride 0.9% 100 ML IVPB SCH ×2 (08:31→16:18)
[2018-06-14] MEDS ORDERED: cloNIDine 0.1 MG TAB PO PRN (13:57)
[2018-06-14] MEDS: Fluticasone Propionate Nasal Spray 16 gm Bottle NASAL SCH (16:19)
--- NOTE | 2018-06-14 19:38 | PRG ---
DATE OF SERVICE: 06/14/2018 SUBJECTIVE: Mr. Acevedo has no abdominal pain. He is tolerating a solid diet. OBJECTIVE: VITAL SIGNS: Temperature is 98.0. He did have a fever this morning to 101.4. GENERAL: He is in no acute distress, alert and oriented. LUNGS: Clear to auscultation bilaterally. HEART: Regular rate and rhythm. ABDOMEN: Soft, nontender, nondistended. Bowel sounds are present. EXTREMITIES: No lower extremity edema. IMPRESSION: 1. Alcoholic pancreatitis, clinically resolved. 2. Delirium tremens, greatly improved. 3. Mild alcoholic hepatitis with elevated AST and mildly elevated bilirubin. 4. Fever. It is too early for infected pancreatic necrosis. I would suspect that his fever is from a source other than the pancreas at this point. Blood cultures are negative so far.
--- NOTE | 2018-06-14 19:55 | PRG ---
DATE OF SERVICE: 06/14/2018 BRIEF SUMMARY: Patient is a 42-year-old male with chronic alcoholism who presented to the hospital o n 06/09/2018 with abdominal pain. His workup was consistent with acute alcoholic pancreatitis with a lipase of 13,784. He was kept n.p.o. and was started on IV fluids. Two days later, the patient sta rted developing alcohol withdrawal for which he was transferred to telemetry. Due to worsening alcoh ol withdrawal, he was eventually transferred to the critical care and was started on Precedex drip. Precedex drip was discontinued yesterday evening. His tremors are controlled with benzodiazepines on an as needed basis. Blood cultures were sent this morning for a fever of 101.4. He was also starte d on meropenem this morning. The patient is anxious, less tremulous. He is awake and is asking if he can go home tomorrow. Denie s any nausea, vomiting. He is tolerating a low-fat diet. SUBJECTIVE: GENERAL: A 42-year-old male in no apparent distress. VITAL SIGNS: The patient's last temperature was 98 with blood pressure of 106/67, heart rate of 80 w ith O2 saturation 94% on room air. LUNGS: Clear to auscultation bilaterally. HEART: S1, S2 present, tachycardic. ABDOMEN: Soft. Bowel sounds present. EXTREMITIES: No edema or calf tenderness. LABORATORY FINDINGS: Potassium 2.9 with magnesium 2.0. Telemetry monitoring by my review showed sinus rhythm. IMPRESSION: 1. Acute alcoholic pancreatitis, probably resolved. He is tolerating low fat diet. 2. Delirium tremens requiring transfer to critical care/Precedex drip, improving. We will continue alcohol withdrawal protocol. Clonidine will be discontinued. 3. Electrolyte abnormalities. The patient is hypokalemic. This will be replaced. His potassium an d magnesium are in normal range. Hyponatremia. 4. Chronic alcoholism. The patient was extensively counseled to quit drinking. 5. Deep venous thrombosis prophylaxis with subcutaneous heparin. This can be discontinued once ezekiel ent starts to ambulate. We will also continue thiamine and folic acid. 6. A.m. labs have been ordered.
[2018-06-15] MEDS: Meropenem 2 GM, Admixture Fee 1 EACH in Sodium Chloride 0.9% 100 ML IVPB SCH ×2 (00:45→08:57)
[2018-06-15] MEDS: D5 1/2 NS w/20 mEq KCL 1,000 ML IV SCH (02:29)
[2018-06-15 04:58] LABS: ALT (SGPT) 37 U/L (8-55); AST (SGOT) 35 U/L (5-34); Albumin 2.7 g/dL (3.5-5.0); Alkaline Phosphatase 61 U/L (40-150); Anion Gap 12 mmol/L (10-20); BUN (Urea Nitrogen) Less than 4 mg/dL (8.9-20.6); Bilirubin, Total 0.7 mg/dL (0.2-1.2); Calc. Creatinine Clearance 201 mL/min (70-130); Calcium 8.4 mg/dL (7.8-10.44); Carbon Dioxide 23 mmol/L (22-29); Chloride 101 mmol/L (98-107); Estimated GFR-MDRD Greater than 90; Globulin 2.9 g/dL (2.4-3.5); Glucose 154 mg/dL (70-105); Magnesium 1.7 mg/dL (1.6-2.6); Phosphorus 3.2 mg/dL (2.3-4.7); Potassium 3.6 mmol/L (3.5-5.1); Protein, Total 5.6 g/dL (6.0-8.3); Sodium 132 mmol/L (136-145)
[2018-06-15 05:20] LABS: Hemoglobin 11.4 g/dL (14.0-18.0); Lymphocytes 14 % (21-51); MDiff Complete? YES; Mean Corpuscular HGB CONC 32.9 g/dL (32.0-36.0); Mean Corpuscular Hemoglobin 30.5 pg (27.0-31.0); Mean Corpuscular Volume 92.7 fL (78.0-98.0); Mean Platelet Volume 7.3 fL (7.4-10.4); Monocytes 16 % (0-10); Neutrophil 70 % (42-75); Nucleated RBC 1 % (0); PLT Morphology Comment Appears Adequate; Platelet Count 311 thou/uL (130-400); RBC Distribution Width 14.3 % (11.5-14.5); Red Blood Cell (RBC) Count 3.73 mill/uL (4.70-6.10)
[2018-06-15] MEDS: Multivit, Therapeutic 1 TAB PO SCH (08:51)
[2018-06-15] MEDS: Folic Acid 1 MG TAB PO SCH (08:52)
[2018-06-15] MEDS: Famotidine 20 MG TAB PO SCH (08:52)
[2018-06-15] MEDS: Heparin 5,000 UNITS/ML VIAL SC SCH (08:52)
[2018-06-15] MEDS: Escitalopram Oxalate 20 mg Tablet PO SCH (08:52)
--- NOTE | 2018-06-15 10:15 | PRG ---
DATE OF SERVICE: 06/15/2018 SUBJECTIVE: Mr. Acevedo has no complaints. No abdominal pain, nausea, vomiting, diarrhea, cough. He is tolerating a regular diet well. PHYSICAL EXAMINATION: VITAL SIGNS: Temperature 99.2, pulse 100, blood pressure 152/91. GENERAL: He is in no acute distress, awake and alert. LUNGS: Clear to auscultation bilaterally. HEART: Regular rate and rhythm. ABDOMEN: Soft, nontender, nondistended, bowel sounds are present. EXTREMITIES: No lower extremity edema. LABORATORY DATA: White blood cell count is 9.0. IMPRESSION: 1. Acute pancreatitis. This overall was mild pancreatitis, clinically. CT showed a question of dec reased contrast uptake in part of the pancreas; however, given his clinical progression, I doubt this was true necrosis. He did have fever over the last couple of days and again I do not think this is secondary to the pancreas or infected pancreatic necrosis. His pancreatitis has been resolved. 2. Delirium tremens, resolved. 3. Alcohol abuse. He has been advised to discontinue all alcohol intakes from now on. 4. Fever. He certainly would be at risk for aspiration when he was confused and had DTs or atelecta sis at that point. RECOMMENDATIONS: 1. He should be ready to discharge home from a pancreatitis standpoint. 2. I will sign off. Please call if GI can be of assistance.
--- NOTE | 2018-06-15 11:21 | PRG ---
DATE OF SERVICE: 06/15/2018 SUBJECTIVE: This morning, he is awake, responsive, in no apparent distress. He denies any pain or d iscomfort. OBJECTIVE: VITAL SIGNS: Low-grade temperature of 99, pulse 100, respirations 18, sats 95% on room air, blood pr essure 142/91. CHEST: No wheezing or crackles. CARDIAC: Normal S1, S2. No gallops. ABDOMEN: Soft, no masses. LABORATORY DATA: His white count is only 9000. IMPRESSION: Status post pancreatitis and fever. PLAN: He was started on broad-spectrum antibiotics by primary care physician. Fever is probably fro m his pancreatitis. I doubt he has got any obvious infection. Await cultures though. We will follow.
[2018-06-15 14:16] VITALS: BP 137/88; TEMP 98.2
--- NOTE | 2018-06-15 15:01 | PDOC.PN ---
- Subjective Encounter Start Date: 06/15/18 Encounter Start Time: 14:59 was seen today in follow-up of acute pancreatits. He says he is feeling fine. He denies abdominal pain, and he has eaten a burger without difficulty. - Objective Resuscitation Status: Resuscitation Status FULL:Full Resuscitation MAR Reviewed: Yes Vital Signs & Weight: Vital Signs (12 hours) Temp Pulse Resp BP BP BP Pulse Ox 06/15/18 12:00 98.2 F 99 18 137/88 98 06/15/18 08:04 99.2 F 100 18 152/91 H 95 06/15/18 04:00 98.9 F 93 20 156/88 H 96 Weight Admit Weight 204 lb Weight 204 lb Most Recent Monitor Data Heart Rate from ECG 94 NIBP 93/57 NIBP BP-Mean 69 Respiration from ECG 17 SpO2 98 I&O: 06/14/18 06/15/18 06/16/18 06:59 06:59 06:59 Intake Total 4115.9 1735 Output Total 6750 3476 Balance -2634.1 -1741 Result Diagrams: 06/15/18 04:24 06/15/18 04:24 Phys Exam - Physical Examination HEENT: PERRLA Respiratory: no wheezing, no rales, no rhonchi, clear to auscultation bilateral Cardiovascular: RRR, no significant murmur, no rub Gastrointestinal: soft, non-tender, no distention, positive bowel sounds Musculoskeletal: no edema Dx/Plan (1) Acute pancreatitis Code(s): K85.90 - ACUTE PANCREATITIS WITHOUT NECROSIS OR INFECTION, UNSP Status: Acute (2) Alcohol abuse Code(s): F10.10 - ALCOHOL ABUSE, UNCOMPLICATED Status: Chronic (3) Hypertension Code(s): I10 - ESSENTIAL (PRIMARY) HYPERTENSION Status: Chronic - Plan * Pancreatits- resolved * Fever- better, and cultures are negative to date. He does not appear toxic * Stable for discharge home.
--- NOTE | 2018-06-15 15:20 | DIS ---
DATE OF ADMISSION: 06/09/2018 DATE OF DISCHARGE: 06/15/2018 PRIMARY CARE PHYSICIAN: Marga Sanz D.O. DISCHARGE DISPOSITION: Home. PRIMARY DISCHARGE DIAGNOSES: 1. Acute pancreatitis. 2. Alcohol abuse. 3. Drug abuse. 4. Hypertension. DISCHARGE MEDICATIONS: Thiamine 100 mg daily, Theragran-M 1 tablet daily, folic acid 1 mg daily, lis inopril 10 mg daily, escitalopram 20 mg daily. PROCEDURES DONE DURING ADMISSION: The patient had a CT scan of the abdomen, in which there was an ar ea of diminished enhancement of the neck and proximal body of the pancreas, worrisome for necrotizing pancreatitis and a hypodense lesion in the junction of the head and uncinate process of the pancreas , possible pseudocyst, diffuse fatty infiltration of the liver. The patient also had an abdominal ul trasound, which was significant for diffuse hepatic steatosis. Gallbladder wall thickness was normal . Common duct was also normal. CODE STATUS: FULL CODE. HOSPITAL COURSE: Mr. Acevedo is a pleasant 42-year-old gentleman, who presented to the emergency r oom with complaints of severe abdominal pain. He was found to have pancreatitis. It was in associat ion with alcohol intake. He admitted to having problems with alcohol abuse. He was placed on bowel rest and IV fluids and IV analgesics, and over the course of the next few days, the pancreatitis reso lved. He was counseled on the need to abstain from alcohol. He states that he plans to join his bro ther in AA meetings as an outpatient. Therefore, he admitted that he was going to attend outpatient meetings with AA with his brother. The patient is clinically stable and [facility] with his primary care physician in 1-2 weeks.
--- NOTE | 2018-06-16 14:24 | EKG ---
Test Reason : TACHYCARDIA Blood Pressure : / mmHG Vent. Rate : 126 BPM Atrial Rate : 126 BPM P-R Int : 130 ms QRS Dur : 084 ms QT Int : 310 ms P-R-T Axes : 055 095 061 degrees QTc Int : 448 ms Sinus tachycardia Rightward axis Borderline ECG When compared with ECG of 07-MAY-2018 19:29, No significant change was found Confirmed by NALDO VARGAS ([id number]) on 06/16/2018 2:24:15 PM Referred By: CHAVA Confirmed By:NALDO VARGAS
--- NOTE | 2018-06-16 14:35 | EKG ---
Test Reason : Blood Pressure : / mmHG Vent. Rate : 125 BPM Atrial Rate : 125 BPM P-R Int : 132 ms QRS Dur : 084 ms QT Int : 310 ms P-R-T Axes : 042 095 043 degrees QTc Int : 447 ms Sinus tachycardia Rightward axis Borderline ECG When compared with ECG of 10-JUN-2018 03:55, (Unconfirmed) No significant change was found Confirmed by NALDO VARGAS ([id number]) on 06/16/2018 2:35:22 PM Referred By: LEYDI Confirmed By:NALDO VARGAS
== END 2018-06-15 16:01 | disposition home or self-care (01) | DRG 439 ==
LOC: ERS 14:29 → T4-A 16:57 → 2SE 06-12 04:35 → CCU 06-12 11:23 → T4-A 06-14 15:29
PROVIDERS: ADMIT Internal Medicine; ATTEND Internal Medicine
DX: K85.20 Alcohol induced acute pancreatitis without necrosis or infection (principal); F10.231 Alcohol dependence with withdrawal delirium; F14.121 Cocaine abuse with intoxication with delirium; I10 Essential (primary) hypertension; F32.9 Major depressive disorder, single episode, unspecified; F17.200 Nicotine dependence, unspecified, uncomplicated; E87.6 Hypokalemia; K70.10 Alcoholic hepatitis without ascites; E86.0 Dehydration
CPT/HCPCS: 36415; 74160; 76705; 80048; 80053; 80076; 80306; 80307; 82550; 82553; 83690; 83735; 84100; 84484; 85025; 87040; 93005; 93010; 94760; 96365; 96375; 96376; 99406; A4216; C9113; J1644; J1650; J2060; J2185; J2270; J2405; J3411; J3475; J3480; J7042; J7050; S0028

== ENCOUNTER 2019-07-09 13:51 | Emergency (ER) | payer SELFPAY | END 2019-07-09 17:05 | disposition home or self-care (01) | LOC: ERS 13:51 | DX: K57.92 Diverticulitis of intestine, part unspecified, without perforation or abscess without bleeding (principal); F41.9 Anxiety disorder, unspecified; F32.9 Major depressive disorder, single episode, unspecified; E05.90 Thyrotoxicosis, unspecified without thyrotoxic crisis or storm; K21.9 Gastro-esophageal reflux disease without esophagitis; I10 Essential (primary) hypertension; G43.909 Migraine, unspecified, not intractable, without status migrainosus; F17.210 Nicotine dependence, cigarettes, uncomplicated; Z79.899 Other long term (current) drug therapy | CPT/HCPCS: 99284 ==

== ENCOUNTER 2019-12-28 09:59 | Emergency (ER) | payer SELFPAY ==
[2019-12-28 10:28] LABS: #Eosinphils 0.2 thou/uL (0.0-0.7); #Lymphocytes 1.3 thou/uL (1.20-3.40); #Monocytes 0.8 thou/uL (0.11-0.59); #Neutrophils 4.6 thou/uL (1.40-6.50); %Basophils 0.4 % (0.0-1.0); %Eosinophils 2.4 % (0.0-10.0); %Monocytes 11.1 % (0.0-10.0); Hemoglobin 15.9 g/dL (14.0-18.0); Mean Corpuscular HGB CONC 33.3 g/dL (32.0-36.0); Mean Corpuscular Hemoglobin 30.6 pg (27.0-31.0); Mean Corpuscular Volume 91.8 fL (78.0-98.0); Platelet Count 210 thou/uL (130-400); RBC Distribution Width 13.5 % (11.5-14.5); White Blood Cell (WBC) Count 6.8 thou/uL (4.8-10.8)
--- NOTE | 2019-12-28 10:45 | RAD ---
PORTABLE CHEST: DATE: 12/28/2019. PROVIDED CLINICAL HISTORY: Chest pain. FINDINGS: Comparison 04/14/2017. Cardiac and mediastinal silhouette is within normal limits. No focal consolid ation, pleural fluid, or pneumothorax apparent. IMPRESSION: No evidence for an acute cardiopulmonary process. POS: FER
[2019-12-28] MEDS ORDERED: Mag-Al 1200 mg/1200 mg/30 ML UDCUP ONE (10:48)
[2019-12-28] MEDS ORDERED: Lidocaine Viscous Sol 2% 15 ml UD Cup ONE (10:48)
[2019-12-28 10:58] LABS: ALT (SGPT) 81 U/L (8-55); AST (SGOT) 85 U/L (5-34); Albumin 4.1 g/dL (3.5-5.0); Alkaline Phosphatase 64 U/L (40-110); Anion Gap 15 mmol/L (10-20); BUN (Urea Nitrogen) 4 mg/dL (8.9-20.6); Bilirubin, Total 0.7 mg/dL (0.2-1.2); CK (CPK) 266 U/L (30-200); Calc. Creatinine Clearance 0 mL/min (70-130); Calcium 9.3 mg/dL (7.8-10.44); Carbon Dioxide 27 mmol/L (22-29); Chloride 96 mmol/L (98-107); Estimated GFR-MDRD Greater than 90; Globulin 3.2 g/dL (2.4-3.5); Glucose 114 mg/dL (70-105); Lipase 26 U/L (8-78); Potassium 4.7 mmol/L (3.5-5.1); Protein, Total 7.3 g/dL (6.0-8.3); Sodium 133 mmol/L (136-145)
[2019-12-28] MEDS ORDERED: Ondansetron ODT 4 MG TAB ONE (11:35)
--- NOTE | 2019-12-31 14:08 | EKG ---
Test Reason : Blood Pressure : / mmHG Vent. Rate : 093 BPM Atrial Rate : 093 BPM P-R Int : 134 ms QRS Dur : 102 ms QT Int : 364 ms P-R-T Axes : 057 098 058 degrees QTc Int : 452 ms Normal sinus rhythm Rightward axis Borderline ECG Confirmed by LAN WINSLOW ([id number]), editor continuity and script LUDY LYLES ([id number]) on 12/31/2019 2:08:10 PM Referred By: Confirmed By:LAN Tuttle
== END 2019-12-28 11:30 | disposition home or self-care (01) ==
LOC: ERS 09:59
DX: R10.13 Epigastric pain (principal); I10 Essential (primary) hypertension; K21.9 Gastro-esophageal reflux disease without esophagitis; F41.9 Anxiety disorder, unspecified; F32.9 Major depressive disorder, single episode, unspecified; F17.210 Nicotine dependence, cigarettes, uncomplicated; Z79.899 Other long term (current) drug therapy
CPT/HCPCS: 71045; 80053; 82550; 83690; 84484; 85025; 93005; Q0162

== ENCOUNTER 2020-01-01 12:32 | Emergency (ER) | payer SELFPAY ==
[2020-01-01] MEDS ORDERED: Ondansetron PF 4 MG/2 ML Vial ONE ×2 (12:52→15:03)
[2020-01-01 12:59] LABS: #Lymphocytes 0.6 thou/uL (1.20-3.40); #Monocytes 0.4 thou/uL (0.11-0.59); #Neutrophils 3.6 thou/uL (1.40-6.50); %Eosinophils 0.6 % (0.0-10.0); %Lymphocytes 13.4 % (21.0-51.0); %Monocytes 8.4 % (0.0-10.0); %Neutrophils 77.6 % (42.0-75.0); Hemoglobin 16.5 g/dL (14.0-18.0); Mean Corpuscular HGB CONC 33.4 g/dL (32.0-36.0); Mean Corpuscular Hemoglobin 30.4 pg (27.0-31.0); Mean Corpuscular Volume 91.1 fL (78.0-98.0); Mean Platelet Volume 7.2 fL (7.4-10.4); Platelet Count 185 thou/uL (130-400); RBC Distribution Width 13.2 % (11.5-14.5); Red Blood Cell (RBC) Count 5.44 mill/uL (4.70-6.10); White Blood Cell (WBC) Count 4.6 thou/uL (4.8-10.8)
[2020-01-01 13:20] LABS: ALT (SGPT) 79 U/L (8-55); AST (SGOT) 62 U/L (5-34); Albumin 4.4 g/dL (3.5-5.0); Alkaline Phosphatase 63 U/L (40-110); Anion Gap 14 mmol/L (10-20); BUN (Urea Nitrogen) 9 mg/dL (8.9-20.6); Calc. Creatinine Clearance 0 mL/min (70-130); Calcium 9.6 mg/dL (7.8-10.44); Carbon Dioxide 27 mmol/L (22-29); Chloride 95 mmol/L (98-107); Estimated GFR-MDRD Greater than 90; Globulin 3.6 g/dL (2.4-3.5); Glucose 126 mg/dL (70-105); Lipase 100 U/L (8-78); Potassium 3.9 mmol/L (3.5-5.1); Sodium 132 mmol/L (136-145)
[2020-01-01] MEDS ORDERED: Lidocaine Viscous Sol 2% 15 ml UD Cup ONE (13:24)
[2020-01-01] MEDS ORDERED: Mag-Al 1200 mg/1200 mg/30 ML UDCUP ONE (13:24)
--- NOTE | 2020-01-01 14:26 | CT ---
CT OF THE ABDOMEN AND PELVIS WITH IV CONTRAST: 01/01/20 INDICATION: History of abdominal pain. COMPARISON: Prior exam dated 07/09/19. FINDINGS: Lung bases are clear. There is fatty infiltration of the liver. Small gallstones is seen within the gallbladder. There is enlargement of the pancreatic pseudocyst now measuring 7.3 x 7.1 cm. There is a stable right renal cyst. No hydronephrosis is evident. Adrenal gland and spleen appear within normal limits. Scattered diverticula involving the colon. No active diverticulitis is evident. There is a normal arthur endix in the right lower quadrant. Small bowel is of normal caliber. There is a fat containing umbilical hernia. The bladder is decompressed. The rectum and perirectal soft tissues are unremarkable appearing. There is mild scattered degenerative change. No definite acute osseous abnormality is evident. IMPRESSION: 1. Interval enlargement of the pancreatic pseudocyst. 2. Fatty liver. 3. Cholelithiasis. 4. Stable right renal cyst. 5. Diverticulosis. POS: BH
[2020-01-01] MEDS ORDERED: Dicyclomine 20 MG TAB ONE (15:43)
== END 2020-01-01 15:59 | disposition home or self-care (01) ==
LOC: ERS 12:32
DX: R11.2 Nausea with vomiting, unspecified (principal); R10.10 Upper abdominal pain, unspecified; R10.816 Epigastric abdominal tenderness; I10 Essential (primary) hypertension; E05.90 Thyrotoxicosis, unspecified without thyrotoxic crisis or storm; G43.909 Migraine, unspecified, not intractable, without status migrainosus; F41.9 Anxiety disorder, unspecified; F32.9 Major depressive disorder, single episode, unspecified; F17.210 Nicotine dependence, cigarettes, uncomplicated; Z79.899 Other long term (current) drug therapy
CPT/HCPCS: 74177; 80053; 83690; 84484; 85025; 93005; 96361; 96374; 96376; J2405